=== PATIENT | male | born 1985 | race Caucasian/White ===

== ENCOUNTER → 2023-04-26 17:04 | Outpatient (CLI) | payer OTHER, SELFPAY ==
--- NOTE | 2023-04-26 17:06 | DI.MRI.S_ITS ---
PROCEDURE: MR ANKLE RT WO CON INDICATIONS: Peroneal tendinitis, right leg TECHNIQUE: Noncontrast sagittal T1 spin echo and T2 fast spin echo with fat saturation, axial proton density fast spin echo and T2 fast spin echo with fat saturation, coronal T1 spin echo and T2 fast spin echo with fat saturation through the ankle/hindfoot. COMPARISON: None. FINDINGS: Image quality: Excellent. Bones and joints: No bone marrow contusions or fractures. No hindfoot coalitions. No osteochondral injuries of the talar dome. No pathologic joint effusions. Medial structures: The posterior tibialis, flexor digitorum longus, and flexor hallucis longus tendons are intact. The posterior tibial neurovascular bundle appears normal within the tarsal tunnel, without extrinsic mass effect. The deep layer (anterior and posterior tibiotalar ligaments) and superficial layer (tibionavicular, tibiospring, and tibiocalcaneal ligaments) of the deltoid ligament appear normal. The spring ligament components (superomedial calcaneonavicular, medioplantar oblique calcaneonavicular, and inferoplantar longitudinal ligaments) are intact. Lateral structures: The anterior talofibular, calcaneofibular, and posterior talofibular ligaments appear intact. More superiorly, there is low-grade partial-thickness tear involving anterior tibial fibular ligament. The posterior tibial fibular ligament is intact. The tibiofibular syndesmosis is normal in width at 2 mm or less. The peroneus longus and brevis tendons are thickened at the level of lateral malleolus tip extending to the level of distal calcaneus with small amount of fluid distending tendon sheath. Adjacent bony peroneal tubercle and retrotrochlear prominence are normal in size. The sinus tarsi demonstrates normal fatty signal, without edema, fibrosis, or cyst formation. Visualized sinus tarsi components (cervical ligament, interosseous talocalcaneal ligament, roots of the inferior extensor retinaculum) appear normal. The calcaneonavicular and calcaneocuboid components of the bifurcate ligament appear intact. The dorsal calcaneocuboid ligament appears intact. Anterior structures: The tibialis anterior, extensor hallucis longus, and extensor digitorum longus tendons appear intact. The dorsal talonavicular ligament appears intact. Posterior and plantar structures: Mildly thickened distal Achilles tendon with subtle intrasubstance T2 hyperintense signal extending to its posterior calcaneal insertion is seen. Medial and lateral bands of the plantar fascia are of normal thickness. No abductor digiti quinti muscle atrophy to suggest Crane neuropathy. IMPRESSION: 1. Low to moderate grade tenosynovitis involving peroneus tendons at the level of lateral malleolus tip extending to the level of calcaneocuboid joint. 2. Low-grade Achilles tendinitis. No Achilles tendon rupture. 3. Low-grade partial-thickness tear involving anterior tibial fibular ligament. Rest of the lateral ankle ligaments are intact. 4. Medial ankle tendons and ligaments are intact. Extensor tendons are intact. 5. No marrow edema. No fracture or dislocation. No evidence of osteochondral injuries of talar dome. Dictated by: El Rey M.D. on 04/29/2023 at 9:25 Approved by: El Rey M.D. on 04/29/2023 at 9:34
== END ==
PROVIDERS: Referring Provider Podiatrist; Visit Provider Podiatrist
DX: M76.71 Peroneal tendinitis, right leg (principal); M76.61 Achilles tendinitis, right leg; S93.431A Sprain of tibiofibular ligament of right ankle, initial encounter
CPT/HCPCS: 73721